=== PATIENT | male | born 2000 ===

== ENCOUNTER 2020-03-26 00:54 | Emergency (ER) | payer SELFPAY ==
--- NOTE | 2020-03-26 00:56 | W.ED.LOWEXIN ---
HPI - Extremity Injury (Lower) General: Chief Complaint: Extremity Injury, Lower Stated Complaint: SWOLLEN FOOT Time Seen by Provider: 03/26/20 00:56 History of Present Illness: HPI Narrative: Patient comes in today with complaints of redness and itching to the tops of both feet. Patient reports that he is noticed it for the last 2 weeks. Patient was concerned because his mom said something about being a brown recluse bite. Patient appears well. No acute distress is noted. Review of Systems General: Reports: 10 or more systems reviewed and unremarkable except in HPI and below Skin/Breast: Reports: erythema PFSH ED PFSH: Social History Smoking and tobacco status: never smoked Physical Exam Const: COMMON NORMALS: no acute distress and patient oriented x3 GENERAL APPEARANCE: cooperative HENMT: COMMON NORMALS: normocephalic and Normal external nose present HEAD & SCALP: normal to inspection and normocephalic NOSE: Normal external nose present MOUTH: Normal oral and palatal mucosa present Eye: GENERAL EYE: appearance normal, both eyes and all related structures Neck/C-Spine: COMMON NORMALS: full ROM Chest: COMMONS NORMALS: normal inspection of the chest Resp: COMMON NORMALS: normal respiratory effort EFFORT & INSPECTION: Yes able to speak in complete sentences Cardio: COMMON NORMALS: regular rate and regular rhythm RATE: regular rate RHYTHM: regular rhythm GI: COMMON NORMALS: non-tender Back/Pelvis: COMMON NORMALS: thoracic and lumbar spine normal to inspection Extremity: COMMON NORMALS: normal to inspection Neuro: COMMON NORMALS: patient oriented x3 and moves all extremities Psych: COMMON NORMALS: mental status grossly normal and cooperative Skin: NARRATIVE SKIN EXAM: Patient has significant redness and swelling to the dorsum of the right foot. Patient also has some mild redness to the left foot but without significant swelling. Patient reports he wears steel toed boots at work. It appears a steel toe boot may be rubbing against the dorsum of the foot. Patient also complains of significant sweating of the feet. Course Vital Signs: Vital signs: Vital Signs Temperature 98.6 F 03/26/20 01:00 Pulse Rate 94 03/26/20 01:00 Respiratory Rate 18 03/26/20 01:00 Blood Pressure 157/91 03/26/20 01:00 Pulse Oximetry 98 03/26/20 01:00 MDM - Extremity Injury (Lower) MDM Narrative: Medical decision making narrative: Patient comes in today for complaints of rash to the feet. On exam he has some redness and swelling to bilateral feet but worse on the right. Patient complains mainly of itching. Differential diagnosis includes atopic eczema, dyshidrosis, cellulitis, fungal infection. Concern for cellulitis in the right dorsal foot due to the increase erythema and swelling of the foot. Otherwise suspect may be some mild dyshidrosis or eczema due to wearing boots with steel toes and increased sweating due to the change in weather. Reviewed exam with patient recommended treatment with antibiotic for 10 days and the use of triamcinolone cream for irritation. Patient reports understanding. Lab Data: Labs: Lab Results 03/26/20 Range/Units 02:07 WBC 7.1 (4.5-13.0) 10^3/ uL RBC 5.45 H (4.1-5.3) 10^6/u L Hgb 14.6 (11.7-16.6) g/dL Hct 45.3 (42.0-52.0) % MCV 83.1 (80-94) fL MCH 26.8 L (28.0-34.0) pg MCHC 32.2 (30.0-36.0) g/dL RDW 12.6 (12.1-15.1) % Plt Count 441 H (130-400) 10^3/c mm MPV 8.9 (7.4-10.4) fL Neut % (Auto) 49.9 % Lymph % (Auto) 31.5 % [place] % (Auto) 14.6 % Eos % (Auto) 3.3 % Baso % (Auto) 0.4 % Neut # (Auto) 3.5 (1.8-8.0) 10^3/u L Lymph # (Auto) 2.2 (1.5-6.5) 10^3/u L [place] # (Auto) 1.0 H (0.2-0.9) 10^3/u L Eos # (Auto) 0.2 (0.0-0.8) 10^3/u L Baso # (Auto) 0.0 (0.0-0.1) 10^3/u L Nucleated RBC % (a uto) 0 % Nucleated RBCs # 0.0 /100WBC Discharge Plan Discharge Patient Disposition: Home, Self-Care Clinical Impression: Dyshidrotic foot dermatitis Cellulitis Qualifiers: Site of cellulitis: extremity Site of cellulitis of extremity: lower extremity Laterality: right Qualified Code(s): L03.115 - Cellulitis of right lower limb Condition: Stable Prescriptions: New Bactrim DS 800-160 mg tablet 1 tab PO BID 10 Days Qty: 20 RF: 0 triamcinolone acetonide 0.1 % cream 1 applic TOPICAL BID Qty: 30 RF: 0 Discharge Diet: Usual diet Discharge Activity: Increase activity as tolerated Activity Restrictions/Additional Instructions: Take medications as directed. Make sure to wear good thick socks with boots. Make sure the steel toe of the boot is not rubbing against the top of your foot. Follow-up with primary care in 1 week. Return to the emergency department for high fever or new concerns. Coding Level of Care Code ED [employer] for I[facility] Zaldivar Exam Comprehensive
[2020-03-26 01:00] VITALS: BP 157/91; PULSE 94; RESP 18; TEMP 37; O2SAT 98; BMI 31.4
[2020-03-26] MEDS: sulfamethoxazole-trimeth DS 160-800 mg Tablet 1 TAB PO (01:36)
[2020-03-26 02:34] LABS: Basophils % 0.4 %; Eosinophils # 0.2 10^3/uL (0.0-0.8); Eosinophils % 3.3 %; Hematocrit 45.3 % (42.0-52.0); Hemoglobin 14.6 g/dL (11.7-16.6); Lymphocytes # 2.2 10^3/uL (1.5-6.5); Lymphocytes % 31.5 %; Mean Corpuscular HGB Conc 32.2 g/dL (30.0-36.0); Mean Corpuscular Hemoglobin 26.8 pg (28.0-34.0); Mean Corpuscular Volume 83.1 fL (80-94); Mean Platelet Volume 8.9 fL (7.4-10.4); Monocytes % 14.6 %; Neutrophils # 3.5 10^3/uL (1.8-8.0); Neutrophils % 49.9 %; Nucleated Red Blood Cells % 0 %; Platelet Count 441 10^3/cmm (130-400); Red Blood Count 5.45 10^6/uL (4.1-5.3); Red Cell Distribution Width 12.6 % (12.1-15.1); White Blood Count 7.1 10^3/uL (4.5-13.0)
[2020-03-26 02:45] VITALS: BP 140/72; PULSE 70; RESP 16; O2SAT 100
--- NOTE | 2020-03-27 10:55 | DCPLANNER ---
internal communications manager had message to speak with patient about a primary care physician. internal communications manager called [phone], unable to speak with patient at this time, a voicemail was left for patient to return high risk case manager phone call.
== END 2020-03-26 02:46 | disposition home or self-care (01) ==
PROVIDERS: Emergency Provider Nurse Practitioner Family
DX: L30.1 Dyshidrosis [pompholyx] (principal); L03.115 Cellulitis of right lower limb
CPT/HCPCS: 12345; 36415; 85025; 99281; 99283